=== PATIENT | female | born 1965 | race Caucasian/White ===

== ENCOUNTER → 2016-08-26 | Outpatient (CLI) | payer MEDICAID, OTHER ==
[~2016-08-26] MED LIST: ALBUTEROL SULFATE 0.083% NEB 2.5 MG/3 ML AMPUL NEB ONE
--- NOTE | 2016-08-28 08:16 | PULMONARY FUNCTION TEST ---
DATE OF SERVICE: 08/26/2016 THE VITAL CAPACITY IS NORMAL. THE EXPIRATORY FLOW RATES ARE SEVERELY DECREASED. THE FEV1/VC IS 34%, PREDICTED: 84% THE DLCO IS 10.3, 57% OF PREDICTED. AFTER BRONCHODILATOR, EXPIRATORY FLOW RATES SHOW SIGNIFICANT IMPROVEMENT. IMPRESSION: GOOD PATIENT EFFORT. SEVERE OBSTRUCTIVE DEFECT WITH SIGNIFICANT IMPROVEMENT IN EXPIRATORY FLOW RATES AFTER BRONCHODILATOR. DIFFUSING CAPACITY IS MODERATELY DECREASED. CC: JHOANA FITZPATRICK MD > K[facility]
== END ==
LOC: RT 13:02
PROVIDERS: ATTEND General Practice
DX: J45.909 Unspecified asthma, uncomplicated (principal)
CPT/HCPCS: 94060; 94729